=== PATIENT | female | born 1975 | race Caucasian/White ===

== ENCOUNTER 2018-02-21 15:43 | Emergency (ER) | payer OTHER ==
--- NOTE | 2018-02-21 16:19 | Emergency Department Report ---
HPI - General Chief Complaint: Wound/Laceration Time Seen by Provider: 02/21/18 16:09 - HPI HPI: Room 18 The patient is a 42-year-old female presenting with a chief complaint of finger laceration. The patient states approximately 30-40 minutes prior to arrival she was at work cutting meat with a meat saw when she accidentally cut her right index finger. Patient currently gives her pain a score of 4/10. The patient states she is certain she has received a tetanus shot within the last 5 years Location: Right index finger Duration: [See above] Quality: Pain Severity: 4/10 Modifying factors: [see above] Context: [see above] Mode of transportation: Unknown ED Past Medical Hx - Past Medical History Previous Medical History?: No - Surgical History Past Surgical History?: No - Family History Family history: no significant - Social History Smoking Status: Never Smoker Substance Use Type: None (denies illicit drug use) - Medications Home Medications: Home Medications Medication Instructions Recorded Confirmed Last Taken Type Cephalexin [Keflex] 500 mg PO Q6HR #40 capsule 02/21/18 Unknown Rx HYDROcodone/APAP 5-325 [[place] 1 - 2 each PO Q6HR PRN #20 tablet 02/21/18 Unknown Rx 5/325] Ibuprofen [Motrin 800 MG tab] 800 mg PO Q8HR PRN #20 tablet 02/21/18 Unknown Rx ED Review of Systems ROS: Stated complaint: RIGHT INDEX FINGER Other details as noted in HPI Constitutional: no symptoms reported Respiratory: no symptoms reported Endocrine: no symptoms reported Musculoskeletal: arthralgia, myalgia Skin: other (finger laceration) Physical Exam - Physical Exam Vital Signs: Vital Signs 02/21/18 15:51 Temperature 98.2 F Pulse Rate 79 Blood Pressure 105/77 O2 Sat by Pulse 100 Oximetry Physical Exam: GENERAL: The patient is well-developed well-nourished female sitting on stretcher not appearing to be in acute distress. [] HEENT: Normocephalic. Atraumatic. NECK: Trachea midline CHEST/LUNGS: Clear to auscultation. There is no respiratory distress noted. HEART/CARDIOVASCULAR: Regular. There is no tachycardia. SKIN: There is no rash. There is no edema. There is no diaphoresis. NEURO: The patient is awake, alert, and oriented. The patient is cooperative. The patient has normal speech MUSCULOSKELETAL: There is ED Course Vital Signs 02/21/18 15:51 Temperature 98.2 F Pulse Rate 79 Blood Pressure 105/77 O2 Sat by Pulse 100 Oximetry - Laceration /Wound Repair Right Finger Wound Location: upper extremity Wound's Depth, Shape: linear, nail-avulsed Wound Explored: clean Irrigated w/ Saline (ccs): 500 Betadine Prep?: Yes Anesthesia: 1% Lidocaine Volume Anesthetic (ccs): 5 (proparacaine 0.25% was mixed with lidocaine 1% in a 1:1 ratio) Wound Repaired With: sutures Suture Size/Type: 4:0, nylon Number of Sutures: 7 Deep Layer Suture Size/Type: 4:0 Number Deep Layer Sutures: 1 (1 running 4. 0 Vicryl suture was used to repair the nail bed) Sterile Dressing Applied?: Yes ED Medical Decision Making - Radiology Data Radiology results: report reviewed (right finger x-ray), image reviewed (right index finger x-ray) interpreted by me: Right index finger [id number] phalanx fracture [facility] [address] [place] [address] XRay Report Signed Patient: HENRY ROLLINS MR#: [id number] : 1975 Acct:[id number] Age/Sex: 42 / F ADM Date: 02/21/18 Loc: ED Attending Dr: Ordering Physician: DALY BALDWIN MD Date of Service: 02/21/18 Procedure(s): XR finger(s) 2+V RT Accession Number(s): [id number] cc: DALY BALDWIN MD Fluoro Time In Minutes: FINAL REPORT EXAM: XR FINGER(S) 2+V RT HISTORY: cut finger on a meat saw TECHNIQUE: 3 views of the right index finger PRIORS: None. FINDINGS: Slightly comminuted fracture is noted in the distal aspect of the distal phalanx with moderate diastasis and slight angulation. Other bones intact. No dislocation. IMPRESSION: Distal phalanx fracture Transcribed By: BAL Dictated By: ABENA PEGUERO MD Electronically Authenticated By: ABENA PEGUERO MD Signed Date/Time: 02/21/181658 DD/ 58 TD/TT: 02/21/181658 - Differential Diagnosis partial amputation Critical care attestation.: If time is entered above; I have spent that time in minutes in the direct care of this critically ill patient, excluding procedure time. 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 Prescriptions: Cephalexin [Keflex] 500 mg PO Q6HR #40 capsule HYDROcodone/APAP 5-325 [[place] 5/325] 1 - 2 each PO Q6HR PRN #20 tablet PRN Reason: Pain Ibuprofen [Motrin 800 MG tab] 800 mg PO Q8HR PRN #20 tablet PRN Reason: Pain, Moderate (4-6) Referrals: CHATA BOO MD [Staff Physician] - [facility] (Dr. Boo is an orthopedic surgeon. Please follow up with him as soon as possible for further evaluation) Time of Disposition: 17:35
[2018-02-21] MEDS ORDERED: NACL 0.9% 500 ML IR ONE (16:33)
--- NOTE | 2018-02-21 17:03 | XRay Report ---
FINAL REPORT EXAM: XR FINGER(S) 2+V RT HISTORY: cut finger on a meat saw TECHNIQUE: 3 views of the right index finger PRIORS: None. FINDINGS: Slightly comminuted fracture is noted in the distal aspect of the distal phalanx with moderate diastasis and slight angulation. Other bones intact. No dislocation. IMPRESSION: Distal phalanx fracture
[2018-02-21] MEDS ORDERED: ANCEF IM ONE (17:27)
[2018-02-21] MEDS ORDERED: NORCO 5/325 ONE (18:03)
[2018-02-21] MEDS ORDERED: NORCO 5/325 PO ONE (18:10)
[2018-02-21 18:17] VITALS: BP 144/86
== END 2018-02-21 18:11 | disposition home or self-care (01) ==
LOC: ED 15:43
DX: S68.620A Partial traumatic transphalangeal amputation of right index finger, initial encounter (principal); W45.8XXA Other foreign body or object entering through skin, initial encounter; Y93.89 Activity, other specified; Y92.89 Other specified places as the place of occurrence of the external cause; Y99.8 Other external cause status
CPT/HCPCS: 12041; 73140; 96372; 99283; J0690